=== PATIENT | male | born 1955 | race Caucasian/White ===

== ENCOUNTER 2019-08-07 08:37 | Day surgery (SDC) | payer SELFPAY ==
[~2019-08-07] VITALS: Ht 182.9 cm; Wt 127.0 kg
[~2019-08-07 08:37] MED LIST: CALCIUM600 M1 PO; MIGRAINE RELIEF1 TAB PO
[2019-08-07 09:57] LABS: BARBITURATES NEGATIVE (NEGATIVE); COCAINE NEGATIVE (NEGATIVE); METHADONE NEGATIVE (NEGATIVE); OXCYCODONE NEGATIVE (NEGATIVE); TETRAHYDROCANNABIONOL POSITIVE (NEGATIVE); TRICYLIC ANTIDEPRESSANTS NEGATIVE (NEGATIVE)
[2019-08-07 13:24] VITALS: BP 134/64
[2019-08-07] MEDS ORDERED: GOLYTELY4000 ML PO (13:41)
== END 2019-08-07 13:54 | disposition home or self-care (01) | DRG 395 ==
LOC: ENDO 08:37 → ORM 12:30 → ENDO 12:30
PROVIDERS: ATTEND Surgery
PROC: 0DJD8ZZ Inspection of Lower Intestinal Tract, Via Natural or Artificial Opening Endoscopic (ICD-10-PCS; principal; 2019-08-07)
DX: K63.5 Polyp of colon (principal)

== ENCOUNTER 2019-08-08 06:20 | Day surgery (SDC) | payer SELFPAY ==
[~2019-08-08] VITALS: Ht 182.9 cm; Wt 127.0 kg
[~2019-08-08 06:20] MED LIST changes: +GOLYTELY4000 ML PO
[2019-08-08 09:20] VITALS: BP 155/93
== END 2019-08-08 09:32 | disposition home or self-care (01) | DRG 395 ==
LOC: ORM 06:20
PROVIDERS: ATTEND Surgery
PROC: 0DBH8ZX Excision of Cecum, Via Natural or Artificial Opening Endoscopic, Diagnostic (ICD-10-PCS; principal; 2019-08-08)
DX: D12.0 Benign neoplasm of cecum (principal); I10 Essential (primary) hypertension; E03.9 Hypothyroidism, unspecified